=== PATIENT | male | born 1960 | race Caucasian/White ===

== ENCOUNTER 2017-07-27 21:27 | Emergency (ER) | payer OTHER ==
[~2017-07-27] VITALS: Ht 170.2 cm; Wt 83.5 kg
[~2017-07-27 21:27] MED LIST: NOHOMEMEDS
[2017-07-27 22:03] LABS: HEMATOCRIT 44.7 % (38.0-50.0); HEMOGLOBIN 15.4 G/DL (12.5-16.6); MCHC 34.5 G/DL (30.0-36.0); MCV 87.1 FL (86-99); PLATELET COUNT 321 K/uL (156-360); RBC DIS.WIDTH-CV 11.9 % (11.8-14.6); RBC DIS.WIDTH-SD 38.2 % (39-53); RED BLOOD COUNT 5.13 M/uL (4.00-5.50)
[2017-07-27 22:13] LABS: CHLORIDE 109 mEq/L (99-109); POTASSIUM 3.9 mEq/L (3.7-5.4); SODIUM 140 mEq/L (136-147)
[2017-07-27 22:15] LABS: GLUCOSE 101 mg/dL (70-99)
[2017-07-27 22:19] LABS: CREATININE 1.3 mg/dL (0.6-1.3); GFR ESTIMATE (CALCULATED) > 59 mL/min/ (58.99-99999); UREA NITROGEN (BUN) 23 mg/dL (9-23)
[2017-07-27 22:23] LABS: TROP-I INTERPRETATION NEGATIVE; TROPONIN-I < 0.01 ng/mL (0.0-0.30)
[2017-07-28 00:19] VITALS: BP 141/85
== END 2017-07-28 00:20 | disposition home or self-care (01) ==
LOC: EME 21:27
DX: R00.2 Palpitations (principal)
CPT/HCPCS: 71046; 80048; 84484; 85027; 93005; 99281; 99284